=== PATIENT | male | born 1970 | race Caucasian/White ===

== ENCOUNTER 2020-10-05 09:18 | Outpatient (CLI) | payer OTHER, SELFPAY ==
--- NOTE | 2020-10-05 08:45 | DI.RAD_ITS ---
EXAM: XR FOOT LT COMPLETE CLINICAL HISTORY: left hammer toe. TECHNIQUE: 2D digital imaging was performed. COMPARISON: No exams were available for comparison FINDINGS: There is no evidence of acute fracture nor diastasis of the Lisfranc joint. Hammertoe deformities ar e noted. No osseous lesions. No obvious tarsal coalition. There is no inferior calcaneal spur evid ent. IMPRESSION: DATA REPOSITORY: RADIATION DOSE DELIVERED:
--- NOTE | 2020-10-05 08:45 | DI.RAD_ITS ---
EXAM: XR LUMBAR SPINE AP, LAT CLINICAL HISTORY: scoliosis. TECHNIQUE: 2D digital imaging was performed. COMPARISON: No exams were available for comparison FINDINGS: There is rotoscoliosis convex left. There is partial sacralization of the L5 segment. There is no e vidence of fracture. Mild degenerative anterolisthesis of L4 upon L5 is noted. There is some disc s pace narrowing at L2-3 level and L1-2. No osseous lesions. Degenerative changes are noted in the le ft sacroiliac joint. IMPRESSION: DATA REPOSITORY: RADIATION DOSE DELIVERED:
== END 2020-10-05 09:19 | disposition home or self-care (01) ==
LOC: DIORS 09:19
PROVIDERS: PCP Internal Medicine; Referring Provider Internal Medicine; Visit Provider Physician Assistant
DX: M20.42 Other hammer toe(s) (acquired), left foot (principal); M41.86 Other forms of scoliosis, lumbar region; M53.3 Sacrococcygeal disorders, not elsewhere classified
CPT/HCPCS: 72100; 73630

== ENCOUNTER 2020-10-28 01:22 | Outpatient (CLI) | payer OTHER, SELFPAY ==
--- NOTE | 2020-10-28 08:00 | DI.MRI_ITS ---
Exam(s) MR LUMBAR SPINE WO EXAM: MR LUMBAR SPINE WO CLINICAL HISTORY: BACK PAIN, SCOLIOSIS OF THORACOLUMBAR SPINE,M41.9. TECHNIQUE: Multiplanar multisequence MRI of the Lumbar spine was performed. COMPARISON: CR XR LUMBAR SPINE AP, LAT from 10/05/2020 FINDINGS: This study as well as the recent plain films 10/05/2020 reveal rotoscoliosis of lumbar spine convex l eft. At the centers at L2-3 level where there are also Modic type 2 sub endplate fatty marrow chroni c changes on the right side of the disc space (see below). Conus medullaris is at normal level. There is no evidence of conus mass nor subjacent clumping of in trathecal nerve roots to suggest arachnoiditis. The distal thecal sac appears unremarkable.There is no evidence of Tarlov intrasacral cysts nor other significant findings within the sacral canal Bones:There are no fractures nor ominous osseous lesions in the lumbar vertebral bodies and visualize d sacrum. With respect to the individual levels... T12-L1: Unremarkable L1-2: Normal disc height and signal. No disc herniation nor central canal stenosis.No foraminal steno sis L2-3: There is normal disc height on the left side of this disc space and significantly diminished di sc height on the right side of this disc space where there also Modic type 2 sub endplate fatty marro w changes on both sides of this diminished disc space on the right side. There is a central subligam entous annular bulging at this level which slightly indents the thecal sac. Central canal dimensions are lower normal at this level. Mild foraminal stenosis on the right side. No obvious facet arthro romeo L3-4: At this level of virus also diminished disc height on the right side. There is mild annular bu lging. Central canal dimensions are lower normal. Asymmetric annular bulging on the right side note d but no not significantly projecting into the thin exiting neural foramen. No significant foraminal stenosis. Moderate-advanced degenerative changes are evident in the right facet joint at this level . Mild degenerative changes in the left facet joint. L4-5: This level exhibits relatively preserved disc height signal. No disc herniation or central spi nal canal stenosis. No prominent foraminal stenosis. Moderate degenerative changes in the right fac et joint. No significant degenerative changes in the left facet joint. L5-S1: Relatively preserved disc height at this level. There is increased signal in the posterior ce ntral left annulus consistent with radial annular tearing at this level and there is a mild broad dis c protrusion at this level which extends posteriorly 2 millimeters and is approximately 3 cm wide. H owever, this only minimally contacts the anterior thecal sac and adjacent nerve roots. Central canal dimensions are within normal limits. There is no significant foraminal stenosis on the right side a t this level. Mild foraminal stenosis on the left side. Right facet joint unremarkable. Significan t degenerative changes in the facet joint on the left side at this level. SACRAL CANAL: No evidence of cord tethering. No abnormal findings at the distal thecal sac. No Tarl ov intra sacral cyst. No evidence of presacral mass. Soft tissues: paraspinal soft tissues appear unremarkable. IMPRESSION: 1. Prominent rotoscoliosis convex left. 2. Asymmetric narrowing of the right side of the disc space most evident at L2-3 and L3-4 levels, as described above. 3. Modic type 2 sub endplate fatty changes on the right side of L2-3 level. No bone edema. DATA REPOSITORY:
== END 2020-10-28 01:42 ==
PROVIDERS: PCP Internal Medicine; Visit Provider Student in an Organized Health Care Education/Training Program
DX: M41.35 Thoracogenic scoliosis, thoracolumbar region (principal)
CPT/HCPCS: 72148

== ENCOUNTER 2022-05-31 10:34 | Outpatient (CLI) | payer MEDICAID, SELFPAY | END 2022-05-31 10:35 | disposition home or self-care (01) | PROVIDERS: PCP Nurse Practitioner Adult Health; Visit Provider Internal Medicine Cardiovascular Disease | CPT/HCPCS: 93010 ==

== ENCOUNTER 2022-06-21 01:44 | Outpatient (CLI) | payer MEDICAID, SELFPAY ==
--- NOTE | 2022-06-21 13:44 | DI.US_ITS ---
APPROVED REPORT EXAM: Comprehensive 2D, Doppler, and color-flow Echocardiogram Patient Location: Out-Patient Rubber Cutter: Merari Garcia RDCS ([place]) Indications: Muscular dystrophy, Abnormal EKG Other Information Study Quality: Adequate Conclusion Normal left ventricular wall thickness. The left ventricle is mildly dilated. Ejection fraction is approximately 25%. There is global hypo to akinesis Normal right ventricular size and systolic function The left atrium is mildly dilated. The right atrium is normal in size Trileaflet aortic valve with trace regurgitation Thickened mitral leaflets with moderate eccentric regurgitation. Mild tricuspid regurgitation. Estimated right ventricular systolic pressure is 24 mmHg Wall motion Left Ventricle Left ventricle is mildly dilated. Left ventricular systolic function is moderate to severely decrease d. There is normal left ventricular wall thickness. Regional wall motion abnormalities are noted. The re is no ventricular septal defect visualized. LVEF is 25%. Right Ventricle The right ventricle is normal size. Right ventricular systolic function is grossly normal. The RVSP i s 24.3_ mmHg. Atria Left atrium is mildy dilated. The right atrium size is normal. The interatrial septum is intact with no evidence for an atrial septal defect. Aortic Valve The aortic valve is normal in structure. Aortic valve is trileaflet. There is no aortic valvular sten osis. Trace aortic regurgitation. Mitral Valve Mitral valve leaflets are thickened. No evidence of mitral valve stenosis. Moderate mitral regurgitat ion. Mitral regurgitation jet is eccentrically directed. Tricuspid Valve The tricuspid valve is normal in structure. There is no tricuspid valve stenosis. Mild tricuspid regu rgitation. Pulmonic Valve The pulmonary valve is normal in structure. There is no pulmonic valvular stenosis. There is no pulmo cortney valvular regurgitation. Great Vessels The aortic root is normal in size. The ascending aorta is normal in size. Aortic arch is normal in ca liber. IVC is normal in size and collapses >50% with inspiration. Pericardium There is no pericardial effusion. 2D Dimensions IVSD d PLAX 0.62 cm M: 0.6-1.2 LV Vol A2C d MOD 118.3 mL LVPW d PLAX 0.84 cm M: 0.6 - 1.2 LV Vol A4C d MOD 183.0 mL LVID d PLAX 6.16 cm M: 4.2 - 5.8 LA vol/ BSA A2C s A-L 57.8 mL/m2 LVDs 5.45 cm M: 2.5 - 4.0 LA vol/ BSA A4C s A-L 44.5 mL/m2 Ao Root d 3.07 cm M: 3.1 - 3.7 LA Vol/ BSA Biplane s A-L 52.9 mL/m2 Ao Asc Diam d 2.81 cm M: 2.6 - 3.4 LA Area A4C s MOD 23.07 cm2 LV EF Teichholz 23.0 % LA Area A2C s MOD 25.23 cm2 LVEF (Flores's) 22.01 % M: 52 - 72 LV EF A4C MOD 25.1 % LV Volume 121.56 mL M: 62 - 150 LV EF A2C MOD 20.7 % LV Volume Index 71.92 mL/m2 M: 34 - 74 LV EF Biplane MOD 22.0 % LV Vol Biplane MOD 152.5 mL SV 33.58 mL FS 10.75 % SV Index 19.94 mL/m2 M-Mode TAPSE 2.80 cm (M/F) >1.7 LV Diastology MV E' medial 0.080 (>0.07 m/s) E/A Ratio 0.7 LV E/e MED 9.30 (<14) MV E Vmax 0.74 (0.4-1.3 m/s) MV E' lateral 0.111 (>0.1 m/s) MV A Vmax 1.00 (0.4-1.3 m/s) LV E/e LAT 6.70 (<14) MV E/A Ratio 0.74 MV E/E' medial 9.31 MV E/E' lateral 6.71 Aortic Valve LVOT Area 3.42 cm2 AoV Area Vmax 2.70 cm2 LVOT Vmax 0.92 m/s AoV Area/ BSA (Vmax) 1.60 cm2/m2 LVOT Mean Suraj. 0.64 m/s CASPER Mean Suraj. 2.67 cm2 LVOT Peak Grad 3.4 mmHg CASPER Mean Suraj. Index 1.59 cm2/m2 LVOT Mean Grad 1.9 mmHg LVOT VTI 0.129 m LVOT Diam s 2.05 cm AoV Vmax 1.16 m/s Velocity Ratio 0.79 AoV Mean Suraj. 0.82 m/s AoV Peak Grad 5.4 mmHg LVOT SV 44.25 mL AoV Mean Grad 3.0 mmHg AoV VTI 0.183 m AoV Area VTI 2.41 cm2 AoV Area/ BSA (VTI) 1.43 cm/m2 Mitral Valve MV DT 213 (160-240 msec) MR Vmax 5.35 m/s MV PHT 62 msec MR VTI 1.698 m MV Area PHT 3.56 cm2 MR Peak Grad 114.3 mmHg MV VTI 0.213 m MR Mean Grad 71.6 mmHg MV Area VTI 2.07 (4.0-6.0 cm2) Pulmonary Valve PV Vmax 0.87 (0.5-1.5 m/s) RVOT Peak Gr. 1.31 mmHg PV Peak Grad 3.0 mmHg RVOT Mean Gr. 0.80 mmHg PV Mean Grad 1.7 mmHg RVOT VTI 0.105 m PV VTI 0.173 m RVOT Vmax 0.57 m/s Tricuspid Valve TR Peak Grad 21.2 mmHg TR Vmax 2.31 m/s RA Pressure 3.00 mmHg RVSP (TR) 24.3 mmHg
== END 2022-06-21 02:04 ==
PROVIDERS: PCP Nurse Practitioner Adult Health; Visit Provider Family Medicine
DX: R94.31 Abnormal electrocardiogram [ECG] [EKG] (principal)
CPT/HCPCS: 93306

== ENCOUNTER 2022-09-06 03:04 | Outpatient (CLI) | payer MEDICAID, SELFPAY ==
[2022-09-06] MEDS: Albuterol HFA 18 GM 200 PUFF INH IH (16:58)
[2022-09-06] MEDS: Inhaler, Assist Device 1 EACH MC (16:58)
--- NOTE | 2022-09-09 13:37 | W.PFT ---
Date of service: 09/06/22 Time of Service: 15:20 Pulmonary Function Test Result Indications: Myotonic dystrophy Interpretation Spirometry: There is no airflow limitation. There is no significant bronchodilator response. The spirometry appears restrictive. MIP and MEP are mildly decreased. Lung Volumes: There is mild restriction Diffusion Capacity: Normal diffusion Airway Pressure: Normal airways resistance Impression Mild restrictive lung disease with a normal diffusion and slightly decreased MIP and MEP consistent with restriction from neuromuscular weakness. Clinical Correlation therefore is recommended.
== END 2022-09-06 03:05 | disposition home or self-care (01) ==
LOC: RT 03:04
PROVIDERS: PCP Nurse Practitioner Adult Health; Visit Provider Student in an Organized Health Care Education/Training Program
DX: G71.09 Other specified muscular dystrophies (principal)
CPT/HCPCS: 94060; 94726; 94729; 36600; 94762

== ENCOUNTER 2022-09-06 03:04 | Outpatient (CLI) | payer MEDICAID, SELFPAY ==
[2022-09-06 15:19] LABS: BE 0 mmol/L (-2-3); HCO3 24 mmol/L (22-26); pCO2 35 mmHg (35-45); pH 7.45 (7.35-7.45); pO2 105 mmHg (80-105); sO2 98 % (95-98); tCO2 21 mmol/L (23-27)
[2022-09-06 15:21] LABS: FIO2 21 %; Site Right Radial
--- NOTE | 2022-09-09 13:29 | W.PFT ---
Date of service: 09/07/22 Time of Service: 22:47 Pulmonary Function Test Result Indications: Muscular dystrophy Note: Overnight Oximetry Amount of time analyzed: 7 hours 56 minutes Number of minutes under 88%: 0.0 LAURIE:2.0 Appearance of oxygen saturation pattern: Normal Recommendation: Normal study Sallie Juarez MD Pulmonary & Critical Care Medicine Clinical Correlation therefore is recommended.
== END 2022-09-06 03:05 | disposition home or self-care (01) ==
LOC: RT 03:04
PROVIDERS: PCP Nurse Practitioner Adult Health; Visit Provider Student in an Organized Health Care Education/Training Program
DX: G71.09 Other specified muscular dystrophies (principal)
CPT/HCPCS: 82805

== ENCOUNTER 2023-01-02 04:33 | Outpatient (CLI) | payer MEDICAID, SELFPAY ==
[2023-01-02 10:35] LABS: ALT 32 U/L (16-63); AST 22 U/L (15-37); Albumin 3.7 g/dL (3.4-5.0); Alkaline Phosphatase 79 U/L (46-116); Anion Gap 6.6 mmol/L (3-11); BUN 13 mg/dL (7-18); Bilirubin, Total 0.4 mg/dL (0.2-1.0); CO2 30.4 mmol/L (21.0-32.0); CREATININE 0.5 mg/dL (0.70-1.30); Calcium 9.1 mg/dL (8.5-10.1); Chloride 101 mmol/L (98-107); Estimated GFR 122.72 (mL/min/1.73m2); Glucose 106 mg/dL (74-106); Potassium 4.7 mmol/L (3.5-5.1); Sodium 138 mmol/L (136-145); Total Protein 7.1 g/dL (6.4-8.2)
[2023-01-02 10:45] LABS: Calculated LDL 107 mg/dL (<100); Cholesterol 200 mg/dL (<200); HDL Cholesterol 75 mg/dL (40-60); TSH (W/Ref FT4) 1.98 uIU/mL (0.36-3.74); Triglyceride 92 mg/dL (<150)
[2023-01-02 11:11] LABS: Hemoglobin A1C 5.2 % (<5.7)
== END 2023-01-02 04:34 | disposition home or self-care (01) ==
LOC: LBO 04:33
PROVIDERS: Psychiatry & Neurology Neurology; PCP Nurse Practitioner Adult Health; Referring Provider Nurse Practitioner Adult Health; Visit Provider Nurse Practitioner Adult Health
DX: R73.9 Hyperglycemia, unspecified (principal); G71.09 Other specified muscular dystrophies; I42.0 Dilated cardiomyopathy; Z13.220 Encounter for screening for lipoid disorders; Z13.29 Encounter for screening for other suspected endocrine disorder
CPT/HCPCS: 36415; 80053; 80061; 83036; 84443

== ENCOUNTER 2023-03-02 04:01 | Outpatient (CLI) | payer MEDICAID, SELFPAY ==
[2023-03-02 13:15] LABS: Kit/Specimen SENT
== END 2023-03-02 04:02 | disposition home or self-care (01) ==
LOC: LBO 04:01
PROVIDERS: PCP Nurse Practitioner Adult Health; Visit Provider Psychiatry & Neurology Neurology
DX: G71.29 Other congenital myopathy (principal); M62.81 Muscle weakness (generalized); I42.0 Dilated cardiomyopathy; M41.86 Other forms of scoliosis, lumbar region; G71.09 Other specified muscular dystrophies
CPT/HCPCS: 36415

== ENCOUNTER → 2023-03-29 13:22 | Outpatient (BNVA) | payer MEDICARE, MEDICAID, SELFPAY | PROVIDERS: PCP Nurse Practitioner Adult Health; Referring Provider Nurse Practitioner Adult Health; Visit Provider Surgery | DX: Z12.11 Encounter for screening for malignant neoplasm of colon (principal) ==

== ENCOUNTER → 2023-07-27 13:07 | Outpatient (BNVA) | payer MEDICARE, SELFPAY | PROVIDERS: PCP Nurse Practitioner Adult Health; Visit Provider Internal Medicine Cardiovascular Disease | DX: I42.9 Cardiomyopathy, unspecified (principal) | CPT/HCPCS: 99213 ==

== ENCOUNTER → 2023-09-08 13:45 | Outpatient (BNVA) | payer MEDICARE, SELFPAY | PROVIDERS: PCP Nurse Practitioner Adult Health; Referring Provider Nurse Practitioner Adult Health; Visit Provider Student in an Organized Health Care Education/Training Program | DX: G70.9 Myoneural disorder, unspecified (principal); G71.09 Other specified muscular dystrophies; J98.4 Other disorders of lung | CPT/HCPCS: 99214 ==

== ENCOUNTER → 2023-12-19 10:51 | Outpatient (BNVA) | payer MEDICARE, SELFPAY | PROVIDERS: PCP Nurse Practitioner Adult Health; Visit Provider Psychiatry & Neurology Neurology | DX: G71.09 Other specified muscular dystrophies (principal) | CPT/HCPCS: 99214 ==

== ENCOUNTER 2024-01-25 09:40 | Outpatient (CLI) | payer MEDICARE, SELFPAY ==
--- NOTE | 2024-01-25 09:30 | RT.EKG_ITS ---
APPROVED REPORT Exam: Resting ECG Reason for Exam: cardiomyopathy Patient Location: O HR:105 bpm ECG Measurements Heart Rate 105 AXIS WI 165 P 61 QRSd 112 QRS 20 QT 355 T 91 QTc 470 Conclusion Sinus tachycardia...rate> 99r Left ventricular hypertrophy...multiple voltage criteria Poor R wave progression
== END 2024-01-25 09:41 | disposition home or self-care (01) ==
LOC: DI.CARD 09:40
PROVIDERS: PCP Nurse Practitioner Adult Health; Visit Provider Internal Medicine Cardiovascular Disease
DX: R94.31 Abnormal electrocardiogram [ECG] [EKG] (principal); I42.9 Cardiomyopathy, unspecified
CPT/HCPCS: 93010

== ENCOUNTER → 2024-01-25 13:50 | Outpatient (BNVA) | payer MEDICARE, SELFPAY | PROVIDERS: PCP Nurse Practitioner Adult Health; Visit Provider Internal Medicine Cardiovascular Disease | DX: I42.2 Other hypertrophic cardiomyopathy (principal); I10 Essential (primary) hypertension; R94.31 Abnormal electrocardiogram [ECG] [EKG] | CPT/HCPCS: 93005; 99213 ==

== ENCOUNTER → 2024-04-25 13:05 | Outpatient (BNVA) | payer MEDICARE, SELFPAY | PROVIDERS: PCP Nurse Practitioner Adult Health; Referring Provider Nurse Practitioner Adult Health; Visit Provider Internal Medicine Cardiovascular Disease | DX: I10 Essential (primary) hypertension (principal); I42.9 Cardiomyopathy, unspecified | CPT/HCPCS: 99213 ==

== ENCOUNTER 2024-12-11 02:43 | Outpatient (CLI) | payer MEDICARE, SELFPAY ==
--- NOTE | 2024-12-11 14:30 | DI.US_ITS ---
APPROVED REPORT EXAM: Comprehensive 2D, Doppler, and color-flow Echocardiogram Patient Location: Out-Patient Cre[employer] Box Tender: Merari Garcia RDCS (AE) Indications: Recheck LV function, Cardiomyopathy Other Information Study Quality: Fair. Technically limited study due to body habitus. Conclusion Mildly dilated left ventricle. EF is 30 to 35%. There is global hypokinesis. Cannot exclude noncompaction Right ventricle is not well-visualized but appears grossly normal in size Mildly dilated left atrium. Normal right atrial size There are no structural valvular abnormalities Mild tricuspid regurgitation with normal estimated right ventricular systolic pressure Moderate eccentric mitral regurgitation Wall motion Left Ventricle Left ventricle is mildly dilated. Left ventricular systolic function is decreased. There is normal left ventricular wall thickness. There is global hypokinesis of the left ventricle. There is no ventricular septal defect visualized. LVEF is 30-35%. Right Ventricle Right ventricle is not well visualized but does not appear enlarged. Right ventricular systolic function could not be assessed. Atria Left atrium is mildly dilated. The right atrium size is normal. The interatrial septum is intact with no evidence for an atrial septal defect. Aortic Valve The aortic valve is normal in structure. Aortic valve is trileaflet. There is no aortic valvular stenosis. Trace aortic regurgitation. Mitral Valve The mitral valve is normal in structure. No evidence of mitral valve stenosis. Moderate eccentric mitral regurgitation. Tricuspid Valve The tricuspid valve is normal in structure. There is no tricuspid valve stenosis. Mild tricuspid regurgitation. The RVSP is 25.0mmHg. Pulmonic Valve The pulmonary valve is normal in structure. There is no pulmonic valvular stenosis. Trace pulmonic regurgitation. Great Vessels The aortic root is normal in size. The ascending aorta is normal in size. Aortic arch is not well visualized. IVC is normal in size and collapses >50% with inspiration. Pericardium There is no pericardial effusion. 2D Dimensions IVSD d PLAX 0.60 cm M: 0.6-1.2 Ao Root d 2.76 cm M: 3.1 - 3.7 LVPW d PLAX 0.75 cm M: 0.6 - 1.2 Ao Asc Diam d 3.09 cm M: 2.6 - 3.4 LVID d PLAX 6.60 cm M: 4.2 - 5.8 LVDs 5.67 cm M: 2.5 - 4.0 LV EF Teichholz 29.3 % FS 14.09 % LV EDV (Teich) 223.5 mL LV ESV (Teich) 158.1 mL M-Mode TAPSE 2.25 cm (M/F) >1.7 Auto EF LV EDV A4C 134.4 mL LV EDV A2C 119.6 mL LV EDV BP 127.4 mL LV ESV A4C 93.7 mL LV ESV A2C 81.5 mL LV ESV BP 88.4 mL LVEF(%) A4C 30.3 % LVEF(%) A2C 31.9 % LVEF(%) BP 30.6 % LV SV A4C 40.7 ml LV SV A2C 38.1 ml LV SV BP 39.0 ml LV CO A4C 3.2 L/min LV CO A2C 3.2 L/min LV CO BP 3.2 L/min HR A4C 78.92 BPM HR A2C 84.51 BPM LV EDV Index (BP) LV Strain Long Pk Overal Avg (s) 8.88 LV Diastology MV E' medial 0.068 (>0.07 m/s) MV E Vmax 0.36 (0.4-1.3 m/s) MV E/E' MED 5.31 (<14) MV A Vmax 0.75 (0.4-1.3 m/s) MV E' lateral 0.076 (>0.1 m/s) E/A Ratio 0.5 MV E/E' LAT 4.75 (<14) MV E' Average 0.072 m/s MV E/E'(average) 5.01 Aortic Valve AoV Vmax 1.05 m/s LVOT Vmax 0.95 m/s AoV Peak Grad 38.5 mmHg LVOT Peak Grad 3.6 mmHg AoV Area (Vmax) 2.97 cm2 LVOT VTI 0.157 m AoV VTI 0.182 m LVOT Mean Grad 2.3 mmHg AoV Mean Suraj. 0.76 m/s LVOT SV 51.58 mL AoV Mean Grad 2.6 mmHg LVOT Diam s 2.00 cm AoV Area (VTI) 2.83 cm2 AV Regurg Peak Gr. 4.39 mmHg Velocity Ratio 0.90 AR Decel Harnett 2.3m/sec2 AR DT 1863 msec AR PHT 540 msec AR Vmax 4.26 m/s Mitral Valve MV DT 110 (160-240 msec) MV Vmax TIPS 0.90 m/s MV Mean Grad 1.9 (<2mmHg) MV VTI 0.189 m Pulmonary Valve PV Vmax 0.93 (0.5-1.5 m/s) RVOT Vmax 0.83 m/s PV Peak Grad 3.4 mmHg RVOT Peak Gr. 2.8 mmHg PV Mean Suraj 0.64 m/s RVOT VTI 0.169 m PV Mean Grad 1.9 mmHg RVOT Mean Gr. 1.6 mmHg Tricuspid Valve RA Pressure 3.00 mmHg TR Vmax 2.35 m/s TV S' 0.10 m/s TR Peak Grad 22.0 mmHg RVSP (TR) 25.0 mmHg
== END 2024-12-11 03:03 ==
LOC: DI 02:44
PROVIDERS: PCP Nurse Practitioner Adult Health; Visit Provider Internal Medicine Cardiovascular Disease
DX: I42.9 Cardiomyopathy, unspecified (principal); I36.0 Nonrheumatic tricuspid (valve) stenosis
CPT/HCPCS: 93306

== ENCOUNTER → 2024-12-17 10:47 | Outpatient (BNVA) | payer MEDICARE, SELFPAY | PROVIDERS: PCP Nurse Practitioner Adult Health; Visit Provider Psychiatry & Neurology Neurology | DX: G71.09 Other specified muscular dystrophies (principal) | CPT/HCPCS: 99214 ==

== ENCOUNTER → 2024-12-19 10:20 | Outpatient (BNVA) | payer MEDICARE, SELFPAY | PROVIDERS: PCP Nurse Practitioner Adult Health; Referring Provider Nurse Practitioner Adult Health; Visit Provider Internal Medicine Cardiovascular Disease | DX: I42.9 Cardiomyopathy, unspecified (principal); I10 Essential (primary) hypertension | CPT/HCPCS: 99213 ==